=== PATIENT | male | born 1945 | race Caucasian/White ===

== ENCOUNTER → 2019-10-29 | Outpatient (CLI) | payer OTHER ==
[~2019-10-29] MED LIST: ALLERGY10 M2 PO; ASPIR 8181 MG PO; CENTRUM SILVER1 EAC2 PO; GLUCOSAMINE-CH1 EAC3 PO; HYDROCODON-ACE1 EAC5 PO; PRILOSEC20 MG PO; SIMVASTATIN40 MG PO; TYLENOL325 MG PO; VOLTAREN GEL 1100 G1 TOP
== END ==
LOC: SJCVCIMAG 09:50
DX: I37.1 Nonrheumatic pulmonary valve insufficiency (principal); I77.819 Aortic ectasia, unspecified site; I25.10 Atherosclerotic heart disease of native coronary artery without angina pectoris; E78.00 Pure hypercholesterolemia, unspecified; R93.1 Abnormal findings on diagnostic imaging of heart and coronary circulation

== ENCOUNTER → 2020-10-29 | Outpatient (CLI) | payer OTHER | LOC: SJCVC 09:45 | PROVIDERS: ATTEND Internal Medicine Cardiovascular Disease | DX: I25.10 Atherosclerotic heart disease of native coronary artery without angina pectoris (principal); E78.00 Pure hypercholesterolemia, unspecified; R93.1 Abnormal findings on diagnostic imaging of heart and coronary circulation; I77.810 Thoracic aortic ectasia; Z96.652 Presence of left artificial knee joint; Z88.8 Allergy status to other drugs, medicaments and biological substances; Z79.82 Long term (current) use of aspirin; Z79.899 Other long term (current) drug therapy; Z82.49 Family history of ischemic heart disease and other diseases of the circulatory system ==